=== PATIENT | female | born 1945 | race Caucasian/White ===

== ENCOUNTER 2020-12-03 09:21 | Day surgery (SDC) | payer MEDICARE ==
[~2020-12-03 09:21] MED LIST: LISINOPRIL10 MG PO; PRAVASTATIN10 MG PO; RESTORIL15 M1 PO; TAMAZAPAM PO; TEMAZEPAM15 MG PO; XALATAN 0.005%2.5 ML OU
[2020-12-03 11:16] VITALS: BP 152/70
--- NOTE | 2020-12-10 11:26 | NUR ---
PER PHYSICIAN, PATIENT NOTIFIED OF COLONOSCOPY RESULTS, REPORT REVIEWED, PATIENT VERBALIZED UNDERSTANDING OF INFORMATION GIVEN. TO FOLLOW UP WITH PCP FOR CONTINUITY OF CARE. REPORT AND NOTED FORWARDED TO PCP.
== END 2020-12-03 11:30 | disposition home or self-care (01) ==
LOC: ENDO 09:21
PROVIDERS: ATTEND Surgery
PROC: 0DBH8ZX Excision of Cecum, Via Natural or Artificial Opening Endoscopic, Diagnostic (ICD-10-PCS; principal; 2020-12-03)
DX: Z12.11 Encounter for screening for malignant neoplasm of colon (principal); D12.0 Benign neoplasm of cecum; K57.30 Diverticulosis of large intestine without perforation or abscess without bleeding; I10 Essential (primary) hypertension; E78.00 Pure hypercholesterolemia, unspecified; Z80.0 Family history of malignant neoplasm of digestive organs; Z86.010 Personal history of colon polyps